=== PATIENT | male | born 1965 | race Caucasian/White ===

== ENCOUNTER → 2019-10-31 07:21 | Outpatient (CLI) | payer MEDICAID | END | disposition home or self-care (01) | LOC: D.OPS 07:21 | PROVIDERS: ATTEND Surgery | DX: K21.9 Gastro-esophageal reflux disease without esophagitis (principal) ==

== ENCOUNTER 2019-12-09 08:00 | Inpatient (IN) | payer MEDICAID ==
[2019-12-06 13:53] LABS: BASOPHILS 0.2 % (0-2); EOSINOPHILS 2.9 % (0-7); HEMATOCRIT 40.3 % (42.0-54.0); HEMOGLOBIN 13.6 g/dL (13.5-17.5); IMMATURE GRANULOCYTES 0.4 % (0-5); LYMPHOCYTES 31.7 % (15-50); MCH 31.5 pg (26.0-34.0); MCHC 33.7 g/dL (31.0-37.0); MCV 93.3 fL (80.0-100.0); MEAN PLATELET VOLUME 9.1 fL (7.4-10.4); MONOCYTES 7.6 % (2-11); NEUTROPHILS 57.2 % (40-80); PLATELET COUNT 364 10x3/uL (130-400); RBC 4.32 10x6/uL (4.20-6.10); RDW 14.9 % (11.5-14.5); WBC 9.9 10x3/uL (4.8-10.8)
[2019-12-06 14:02] LABS: ANION GAP 12.3 mmol/L (8-16); CALCIUM 9.1 mg/dL (8.5-10.1); CARBON DIOXIDE 27.1 mmol/L (21.0-32.0); CREATININE - SERUM 1.4 mg/dL (0.6-1.3); POTASSIUM - SERUM 4.4 mmol/L (3.5-5.1)
[2019-12-09] VITALS (10 sets, daily range): BP systolic 106–134; BP diastolic 46–81; Ht 162.6 cm; Wt 76.8 kg
[~2019-12-09] VITALS: Ht 162.6 cm; Wt 76.8 kg
[~2019-12-09 08:00] MED LIST: BENTYL10 MG PO; CHOLESTYRAM; LISINOPRIL5 MG PO; NORVASC10 MG PO; PEPCID40 MG PO; PROTONIX40 MG PO
--- NOTE | 2019-12-09 12:00 | NUR ---
TO ROOM 2220 FROM PACU VIA BED. PATIENT IS WITHOUT DISTRESS.LAP SITES X4 TO ABD WITH MINIMAL REDNESS AND DRAINAGE.PATIENT AWAKENS INT. ORIENTATION TO ROOM. MONITOR FOR NEEDS.CALL LIGHT IN REACH.IS TO BEDSIDE WITH INSTRUCTIONS. SCD'S ON PATIENT,WAITING ON MACHINE.DOOR OPEN TO MONITOR. 02 SATS 92-93 ON 4 LITERS PER NASAL CANULA.
--- NOTE | 2019-12-09 15:34 | NUR ---
OFF 02 NOW,SATS 94% ON ROOM AIR. TOLERATING CLEAR LIQUID DIET. PAIN 4/10 SCALE TO ABDOMEN,BUT PATIENT DECLINES CURTAIN STRETCHER USE AT THIS TIME. IS INSTRUCTED AGAIN.MONITOR FOR NEEDS
[2019-12-10] VITALS: BP 111/60
--- NOTE | 2019-12-10 02:31 | NUR ---
I have reviewed this patient and I concur with the Shift Assessment completed by the Licensed Practical Nurse today this shift.
[2019-12-10 04:00] VITALS: BP 129/71
[2019-12-10 07:19] LABS: BASOPHILS 0 % (0-2); EOSINOPHILS 0.1 % (0-7); HEMATOCRIT 36.1 % (42.0-54.0); HEMOGLOBIN 12.1 g/dL (13.5-17.5); IMMATURE GRANULOCYTES 0.3 % (0-5); LYMPHOCYTES 18.6 % (15-50); MCH 30.9 pg (26.0-34.0); MCHC 33.5 g/dL (31.0-37.0); MCV 92.3 fL (80.0-100.0); MEAN PLATELET VOLUME 9.5 fL (7.4-10.4); MONOCYTES 7.6 % (2-11); NEUTROPHILS 73.4 % (40-80); PLATELET COUNT 378 10x3/uL (130-400); RBC 3.91 10x6/uL (4.20-6.10); WBC 15.4 10x3/uL (4.8-10.8)
[2019-12-10 07:23] LABS: ALBUMIN 3.3 g/dL (3.4-5.0); ANION GAP 12.1 mmol/L (8-16); BILIRUBIN - TOTAL 0.4 mg/dL (0.2-1.3); CALCIUM 8.7 mg/dL (8.5-10.1); CARBON DIOXIDE 25.3 mmol/L (21.0-32.0); CREATININE - SERUM 1.6 mg/dL (0.6-1.3); POTASSIUM - SERUM 4.4 mmol/L (3.5-5.1)
--- NOTE | 2019-12-10 08:00 | NUR ---
ASSESSMENT PER FLOW SHEET. PT IS WITHOUT DISTRESS.MONITOR FOR NEEDS
[2019-12-10] MEDS ORDERED: HYDROCODON-ACE1 EAC7 PO (08:22)
[2019-12-10] MEDS ORDERED: ZOFRAN4 MG PO (08:22)
[2019-12-10 09:11] VITALS: BP 116/61
--- NOTE | 2019-12-10 09:52 | NUR ---
DISCHARGE INSTRUCTIONS,STATES UNDERSTANDING. IV DCD WITH CATH TIP INTACT. WAITING ON RIDE FOR TRANSPORT HOME
--- NOTE | 2019-12-10 10:22 | NUR ---
LEFT UNIT VIA WHEELCHAIR FOR TRANSPORT HOME
== END 2019-12-10 10:22 | disposition home or self-care (01) | DRG 328 ==
LOC: D.MS 08:00 → D.OPS 08:00 → D.PAN 08:00 → D.OPS 08:15 → D.MS 11:08 → D.OPS 11:08 → D.MS 12-10 10:22
PROVIDERS: Anesthesiology; ADMIT Surgery; ATTEND Surgery
PROC: 0DV44ZZ Restriction of Esophagogastric Junction, Percutaneous Endoscopic Approach (ICD-10-PCS; principal; 2019-12-09 09:00)
PROC: 0BQT4ZZ Repair Diaphragm, Percutaneous Endoscopic Approach (ICD-10-PCS; 2019-12-09 09:00)
DX: K21.9 Gastro-esophageal reflux disease without esophagitis (principal); K44.9 Diaphragmatic hernia without obstruction or gangrene; F17.200 Nicotine dependence, unspecified, uncomplicated; I10 Essential (primary) hypertension

== ENCOUNTER 2019-12-27 13:17 | Emergency (ER) | payer MEDICAID ==
[~2019-12-27] VITALS: Ht 162.6 cm; Wt 71.8 kg
[~2019-12-27 13:17] MED LIST changes: +HYDROCODON-ACE1 EAC7 PO; +ZOFRAN4 MG PO
[2019-12-27 13:27] VITALS: Ht 162.6 cm; Wt 71.8 kg
[2019-12-27 15:42] VITALS: BP 124/81
== END 2019-12-27 15:43 | disposition home or self-care (01) ==
LOC: D.ER 13:17
DX: Z87.19 Personal history of other diseases of the digestive system (principal); Z98.890 Other specified postprocedural states; I10 Essential (primary) hypertension; K21.9 Gastro-esophageal reflux disease without esophagitis

== ENCOUNTER → 2020-02-04 10:46 | Outpatient (CLI) | payer MEDICAID ==
[2019-12-27 13:27] VITALS: BMI 27.1
--- NOTE | 2020-02-06 14:09 | ST ---
PATIENT:JENNIFER LIND MEDICAL RECORD: [id number] SEX: M LOCATION:[facility] ORDER #: ADMISSION DATE: 02/04/20 AGE OF PATIENT: 54 REFERRING PHYSICIAN: INTERPRETING PHYSICIAN: FLOWER SCRUGGS MD DATE OF SERVICE: 02/04/2020 PROCEDURE: Treadmill stress test. Baseline ECG is normal. Exercised for 3 minutes of Napoleon protocol, maximum heart rate 129 beats per minute. Test terminated due to dyspnea and fatigue. No ECG changes, marked dyspnea. IMPRESSION: Indeterminate treadmill due to poor exercise tolerance . Consider further workup as clinically indicated. TRANSINT:[id number] Voice Confirmation ID: [id number] DOCUMENT ID: [id number] FLOWER SCRUGGS MD at 1409 CC: [id number] DICTATION DATE: 02/05/20911 LOST CHARGE CARD CLERK: 02/06/20 0518 DEP CLI 02/04/20 [id number] [place] [address]
== END | disposition home or self-care (01) ==
LOC: D.HCCARDIO 10:46
PROVIDERS: ATTEND Internal Medicine Interventional Cardiology
DX: I20.9 Angina pectoris, unspecified (principal)

== ENCOUNTER 2020-02-12 06:00 | Day surgery (SDC) | payer MEDICAID ==
[~2020-02-12] VITALS: Ht 162.6 cm; Wt 68.6 kg
[2020-02-12 06:29] LABS: HEMATOCRIT 41.6 % (42.0-54.0); HEMOGLOBIN 13.3 g/dL (13.5-17.5); MCH 30.2 pg (26.0-34.0); MCV 94.3 fL (80.0-100.0); MEAN PLATELET VOLUME 9.3 fL (7.4-10.4); RBC 4.41 10x6/uL (4.20-6.10); RDW 14.4 % (11.5-14.5)
[2020-02-12 07:34] VITALS: BP 114/77; Ht 162.6 cm; Wt 68.6 kg
--- NOTE | 2020-02-12 09:45 | NUR ---
0915 IV DC'D. CATHETER TIP INTACT. NO BLEEDING AT SITE. BANDAID APPLIED. 0918 PT GIVEN DISCHARGE INSTRUCTIONS AND VOICES UNDERSTANDING OF INSTRUCTIONS.
== END 2020-02-12 09:34 | disposition home or self-care (01) ==
LOC: D.OPS 06:00
PROVIDERS: Anesthesiology; ATTEND Surgery
DX: R13.10 Dysphagia, unspecified (principal); I10 Essential (primary) hypertension; F17.200 Nicotine dependence, unspecified, uncomplicated; K21.9 Gastro-esophageal reflux disease without esophagitis

== ENCOUNTER 2020-03-09 07:00 | Outpatient (CLI) | payer MEDICAID ==
[~2020-03-09] VITALS: Ht 167.6 cm; Wt 64.5 kg
--- NOTE | ~2020-03-09 | HEMODYNAMI ---
PATIENT:JENNIFER LIND MEDICAL RECORD: [id number] : 65 LOCATION:[facility] ADMISSION DATE: 03/09/20 Generatedon:03/09/202010:01 Patient name: JENNIFER LIND Patient #: [id number] SSN: D OB: 1965 Date of study: 03/09/2020 Page: Of Hemodynamic Procedure Report Patient Data Patient Demographics Procedure consent was obtained First Name: JENNIFER Gender: Male Last Name: DIOGO : 1965 Middle Initial: KERWIN Age: 54 year(s) Patient #: [id number] Race: Unknown Additional ID: [id number] Contact details [address]: [address] [place] [address] State: [place] City: [place] Zip code: [address] Past Medical History Allergies: No known allergies Admission Admission Data Admission Date: 03/09/2020 Admission Time: 7:00 Lab Results Lab Result Date: 03/09/2020 Lab Result Time: 0:00 Biochemistry Name Units Result Min Max BUN mg/dl 18 --(---*)-- 7 18 Creatinine mg/dl 1.5 --(----)-* 0.6 1.3 eGFR ml/min 52 *-(----)-- 90 120 NONAFRICAN CBC Name Units Result Min Max Hematocrit % 41.6 -*(----)-- 42 54 Hemoglobin g/dl 13.5 --(*---)-- 13.5 17.5 Procedure Procedure Types Cath Procedure Diagnostic Procedure LHC LH w/Coronaries Sedation Charges Moderate Sedation up to 15 minutes PCI Procedure Coronary Stent Coronary Stent Initial Hemochron ACT Test Procedure Description Procedure Date Procedure Date: 03/09/2020 Procedure Start Time: 9:38 Procedure End Time: 9:57 Procedure Staff Name Function Chaitanya Johnston MD Performing Physician Soledad Camargo RT Monitor Amy Jimenes RT Scrub Jasmin Chung RN Nurse Procedure Data Cath Procedure Fluoroscopy Diagnostic fluoroscopy Total fluoroscopy Time: 2.3 time: 2.3 min min Diagnostic fluoroscopy Total fluoroscopy dose: 303 dose: 303 mGy mGy Contrast Material Contrast Material Type Amount (ml) Isovue 300 86 Entry Location Entry Primary Successful Side Size Upsize Upsize Entry Closure Succes sful Closure Location (Fr) 1 (Fr) 2 (Fr) Remarks Device Remarks Femoral Right 5 Fr 6 Fr Exoseal artery Short Estimated blood loss: 10 ml Diagnostic catheters Device Type Used For End Catheter Placement MULTIPACK JL 4.0 5Fr Procedure catheter MULTIPACK 3DRC 5Fr Procedure catheter MULTIPACK Pigtail 5 Fr Procedure catheter Procedure Complications No complications Procedure Medications Medication Administration Route Dosage 0.9% NaCl I.V. 100 ml/hr Oxygen etCO2 Nasal cannula 2 l/min Lidocaine 2% added to field 20 Heparin Flush Bag added to field 2 bags (1000units/500ml NS) Versed I.V. 2 mg Fentanyl I.V. 50 mcg Heparin Bolus I.V. 5000 units Integrilin (Bolus I.V. 5.6 ml 2mg/ml) Integrilin (Bolus wasted 4.4 ml 2mg/ml) Plavix P.O. 600 mg Fentanyl I.V. 50 mcg Hemodynamics Rest Heart Rate: 82 (bpm) Pressure Samples Time Site Value (mmHg) Purpose Heart Use Rate(bpm) 9:44 LV 102/4,8 Snapshot 82 Gradients Valve Time Site Site Mean SEP/DFP Peak To Heart Use 1 2 (mmHg) (sec/min) Peak Rate (mmHg) (bpm) Aortic 9:45 LV AO 64 Snapshots Pre Cath Intra NCS Post Cath Vital Signs Time Heart Resp SPO2 etCO2 NIBP Rhythm Pain Sedation Rate (ipm) (%) (mmHg) (mmHg) Status Level (bpm) 9:30:36 76 16 99 35.4 116/72(94) NSR 0 (11) 10(A) , No pain 9:34:50 76 15 97 32.4 113/66(87) NSR 0 (11) 10(A) , No pain 9:39:00 77 17 97 27.1 110/68(84) NSR 0 (11) 10(A) , No pain 9:43:10 75 15 96 33.9 113/68(84) NSR 0 (11) 10(A) , No pain 9:47:22 81 12 98 33.9 110/64(91) NSR 0 (11) 9(A) , No pain 9:51:31 82 12 98 31.7 107/65(87) NSR 0 (11) 9(A) , No pain 9:55:39 73 17 97 29.4 111/71(91) NSR 0 (11) 10(A) , No pain Medications Time Medication Route Dose Verified Delivered Reason Notes Effectiveness by by 9:28:02 0.9% NaCl I.V. 100 Chaitanya Jasmin used for ml/hr [facility] procedure MD BRANDON 9:28:10 Oxygen etCO2 2 Chaitanya Mariea used for Nasal l/min [facility] procedure cannula MD BRANDON 9:28:15 Lidocaine 2% added 20ml Chaitanya Tavares for local to vial [facility] anesthetic field MD HARRISON 9:28:20 Heparin Flush added 2 Chaitanya Chaitanya used for Bag to bags [facility] procedure (1000units/500ml field MD HARRISON NS) 9:37:18 Versed I.V. 2 mg Chaitanya Jasmin for sedation Fully awake @ [facility] 9:55:35 MD BRANDON 9:37:32 Fentanyl I.V. 50 Chaitanya Jasmin for sedation Fully awake @ mcg [facility] 9:55:36 MD BRANDON 9:43:56 Fentanyl I.V. 50 Chaitanya Jasmin for sedation Mostly mcg [facility] sleeping @ MD BRANDON 9:55:26 9:47:58 Heparin Bolus I.V. 5000 Chaitanya Jasmin for verifi ed units [facility] anticoagulation with Dr. MD BRANDON [place] 9:48:13 Integrilin I.V. 5.6 Chaitanya Mariea for (Bolus 2mg/ml) ml [facility] antiplatelet RN therapy 9:48:26 Integrilin wasted 4.4 Chaitanya Jasmin for (Bolus 2mg/ml) ml [facility] antiplatelet MD BRANDON therapy 9:48:37 Plavix P.O. 600 Chaitanya Mariea for mg [facility] antiplatelet RN therapy Procedure Log Time Note 9:15:48 Informed consent obtained and on chart 9:16:24 Procedure Status Elective Heart Cath (OP). 9:16:28 Jasmin Chung RN sent for patient. Start room use. 9:16:29 Time tracking: Regular hours (M-F 7:00 - 5:00) 9:16:32 Plan of Care:Hemodynamics will remain stable., Cardiac rhythm will remain stable., Comfort level will be maintained., Respiratory function will remain adequate., Patient/ family verbilizes understanding of procedure., Procedure tolerated without complication., Recovers from procedure without complications.. 9:20:17 H&P Date Dictated: 02/20/2020 Within 30 days and on chart., H&P Addendum completed by physician on day of procedure. (MUST COMPLETE FOR ALL OUTPATIENTS). 9:20:21 Patient allergic to No known allergies 9:25:15 Patient received from Pre/Post Procedure Room to CCL 1 Alert and oriented. Tansferred to table in Supine position. 9:25:16 Warm blankets applied, and prema hugger turned on for patient comfort. 9:25:17 Correct patient and procedure confirmed by team. 9:25:17 ECG and BP/O2 sat monitors applied to patient. 9:25:19 Vital chart was started 9:25:23 Rhythm: sinus rhythm 9:25:24 Full Disclosure recording started 9:25:25 Pre-procedure instructions explained to patient. 9:25:25 Pre-op teaching completed and patient verbalized understanding. 9:25:27 Family in patients room. 9:25:28 Patient NPO since Midnight. 9:25:32 Is the patient allergic to Iodine/contrast media? No. 9:25:33 Is patient on blood thinner?No 9:25:34 Patient diabetic? No. 9:25:37 Previous problem with sedation/anesthesia? No ? 9:25:39 Snore? Yes 9:25:40 Sleep apnea? No 9:25:41 Deviated septum? No 9:25:42 Opens mouth fully? Yes 9:25:42 Sticks out tongue? Yes 9:25:44 Airway obstruction? No ? 9:25:46 Dentures? No ? 9:25:49 Pre procedure: right dorsailis pedis pulse 1+ Palpable, but thready & weak; easily obliterated 9:26:41 DID NOT GO RADIAL DUE TO PREVIOUS HAND SURGERY IN PAST. WRIST IS REALLY SWOLLEN. 9:26:43 Patient pain scale 0/10 ?. 9:26:46 IV patent on arrival in left hand with 0.9% NaCl at [facility]. 9:28:02 0.9% NaCl 100 ml/hr I.V. was administered by Jasmin Chung RN; used for procedure; Verbal order read back and verified. 9:28:10 Oxygen 2 l/min etCO2 Nasal cannula was administered by Jasmin Chung RN; used for procedure; Verbal order read back and verified. 9:28:15 Lidocaine 2% 20ml vial added to field was administered by Chaitanya Johnston MD; for local anesthetic; Verbal order read back and verified. 9:28:20 Heparin Flush Bag (1000units/500ml NS) 2 bags added to field was administered by Chaitanya Johnston MD; used for procedure; Verbal order read back and verified. :: Lab Result : Creatinine 1.5 mg/dl : Lab Result : BUN 18 mg/dl : Lab Result : eGFR NONAFRICAN 52 ml/min :: Lab Result : Hemoglobin 13.5 g/dl :: Lab Result : Hematocrit 41.6 % 9::32 Lab results completed and on chart. 9:31:36 Right groin area was prepped with chlora-prep and draped in sterile fashion 9:31:36 Alarms reviewed by R. N. 9:31:37 Sharps counted by scrub and verified by R.N. 9:33:20 Stress Test: yes; abnormal TREADMILL- UNABLE TO COMPLETE 9:33:25 Use device set Femoral Dx 9:33:26 ACIST Syringe (15778) opened to sterile field. 9:33:26 Bag Decanter () opened to sterile field. 9:33:27 ACIST Hand Control (77468) opened to sterile field. 9:33:28 ACIST Manifold (23405) opened to sterile field. 9:33:28 Tegaderm 4 x 4 (1626W) opened to sterile field. 9:33:30 Medline Cath Pack ([id number]) opened to sterile field. 9:33:31 DIAGNOSTIC Multipack 5Fr catheter set ([id number]) opened to sterile field. 9:33:32 SHEATH 5FR Ripon (HNO584) opened to sterile field. 9:33:32 EMERALD Guide Wire (528-972) opened to sterile field. 9:36:14 --------ALL STOP TIME OUT------ 9:36:15 Final Timeout: patient, procedure, and site verified with staff and physician. All members of the team are in agreement. 9:36:16 Right groin site verified by team. 9:36:19 Fire Safety Assessment: A--An alcohol-based skin anteseptic being used preoperatively., C--Open oxygen or nitrous oxide is being used., D--An ESU, laser, or fiber-optic light is being used. 9:36:23 Physical assessment completed. ASA score P 2 - A patient with mild systemic disease as per Chaitanya Johnston MD. 9:36:26 3a) 45-59 Moderately reduced kidney function. 9:36:30 Maximum allowable contrast dose (3.7 X eGFR X 0.75)144 ml. 9:36:34 Sedation plan: IV Moderate Sedation Medication:Versed, Fentanyl 9:37:18 Versed 2 mg I.V. was administered by Jasmin Chung RN; for sedation; Verbal order read back and verified. 9:37:32 Fentanyl 50 mcg I.V. was administered by Jasmin Chung RN; for sedation; Verbal order read back and verified. 9:38:06 Procedure started. 9:38:25 Local anesthetic to right femoral artery with Lidocaine 2% by Chaitanya Johnston MD.INITIAL ACCESS ONLY 9:39:01 Zero performed for pressure channel P1 9:39:19 A 5 Fr sheath was inserted into the Right Femoral artery 9:40:10 A MULTIPACK JL 4.0 5Fr catheter was advanced over the wire and used for Procedure. 9:42:14 LCA angiography performed. 9:42:16 Catheter removed. 9:42:40 A MULTIPACK 3DRC 5Fr catheter was advanced over the wire and used for Procedure. 9:43:29 RCA angiography performed. 9:43:31 Catheter removed. 9:43:33 ACCDominant side:Left 9:43:38 A MULTIPACK Pigtail 5 Fr catheter was advanced over the wire and used for Procedure. 9:43:41 Zero performed for pressure channel P1 9:43:56 Fentanyl 50 mcg I.V. was administered by Jasmin Chung RN; for sedation; Verbal order read back and verified. 9:44:11 LV gram done using LAGUNAS 9:44:14 Injector settings: Ml/sec: 10, Volume: 20, 9:45:06 LV hemodynamics recorded. 9:45:18 EF : 55 % 9:45:20 Proceeding to intervention. 9:45:30 SHEATH 6FR [place]on (MTP300) opened to sterile field. 9:45:39 GUIDE 6FR JR 4.0 catheter ([id number]) opened to sterile field. 9:45:51 INFLATOR Merit BasixCompak (LI5384) opened to sterile field. 9:45:51 WHISPER 300cm guide wire ([id number]) opened to sterile field. 9:46:30 Sheath upsized to a 6 Fr Short. 9:46:40 Pre PCI Site: [place] RCA has 80% stenosis. 9:46:47 6 Fr JR 4 guide catheter was inserted over the wire 9:47:58 Heparin Bolus 5000 units I.V. was administered by Jasmin Chung RN; for anticoagulation; verified with Dr. Martínez Verbal order read back and verified. 9:48:13 Integrilin (Bolus 2mg/ml) 5.6 ml I.V. was administered by Jasmin Chung RN; for antiplatelet therapy; Verbal order read back and verified. 9:48:26 Integrilin (Bolus 2mg/ml) 4.4 ml wasted was administered by Jasmin Chung RN; for antiplatelet therapy; Verbal order read back and verified. 9:48:28 WHISPER 300 wire advanced. 9:48:37 Plavix 600 mg P.O. was administered by Jasmin Chung RN; for antiplatelet therapy; Verbal order read back and verified. 9:49:34 Wire advanced across lesion. 9:51:36 Place stent Inflation Number: 1 A INTEGRITY RX 3.5 x 15 stent ([id number]) was prepped and advanced across the Mid RCA . The stent was deployed at 14 VU for 0:00 (min:sec) . 9:52:07 Stent catheter was removed intact over wire. 9:52:08 Wire removed. 9:52:09 Guide catheter removed. 9:52:16 EXOSEAL 6Fr (EX600) opened to sterile field. 9:53:18 Sheath removed intact; hemostasis achieved with Exoseal to the Right Femoral artery. 9:53:20 Procedure ended.(Physican Out) 9:53:35 Fluoroscopy time 02.30 minutes. 9:53:39 Fluoroscopy dose: 303 mGy 9:53:39 Flurop Dose total: 303 9:53:44 Dose Area Product 13906 mGy/cm. 9:53:50 Contrast amount:Isovue 300 86ml. 9:54:06 Maximum allowable dose exceeded? No. 9:54:07 Sharps counted by scrub and verified by R.N. 9:54:10 Post-op/insertion site Right Femoral artery dressed using a 4 x 4 and Tegaderm. 9:54:12 Post-procedure physical assessment completed. ASA score P 2 - A patient with mild systemic disease as per Chaitanya Johnston MD. 9:54:17 Post procedure rhythm: sinus rhythm 9:54:19 Estimated blood loss: 10 ml 9:54:21 Post procedure instruction explained to patient.Patient verbalizes understanding. 9:54:22 Patient needs reinforcement of post procedure teaching. 9:54:56 Procedure type changed to Cath procedure, Diagnostic procedure, LHC, [facility] w/Coronaries, Sedation Charges, Moderate Sedation up to 15 minutes, PCI procedure, Coronary Stent, Coronary Stent Initial, Hemochron ACT Test 9:54:57 Procedure and supply charges have been captured, reviewed, submitted and are correct. 9:55:24 Procedure Complication : No complications 9:55:26 Effectiveness of Fentanyl delivered @ 9:43:56 is: Mostly sleeping 9:55:26 Vital chart was stopped 9:55:28 [facility] Findings: MVD- PCI performed (see procedure note) 9:55:34 Operative report dictated upon procedure completion. 9:55:34 See physician's report for complete and final results. 9:55:35 Effectiveness of Versed delivered @ 9:37:18 is: Fully awake 9:55:36 Effectiveness of Fentanyl delivered @ 9:37:32 is: Fully awake 9:56:03 Report given to Med II. 9:56:06 Patient transfered to Med II with Bed. 9:56:11 ACC-PCI Only Patient was given prescriptions, or instructed by Chaitanya Johnston MD to start/continue the following medications upon discharge: Plavix 9:57:14 ACT drawn and resulted at 258 seconds. (normal therapeutic range 180-240 seconds). 9:57:48 Procedure ended. 9:57:48 Full Disclosure recording stopped 9:57:53 End room use (Document Last) Intervention Summary Intervention Notes Time ActionType Lesion and Equipment Action# Pressure Duration Attributes Used 9:51:36 Place stent Mid RCA INTEGRITY RX 1 14 00:00 3.5 x 15 stent ([id number]) Device Usage Item Name Manufacture Quantity Catalog Hospital Part Current Minimal Lot# / Number Charge Number Stock Stock Serial# Code ACIST Acist 1 16174 356191 149571 065530 20 Syringe Medical (98462) Systems Inc Bag Decanter Microtek 1 2001S 660994 10415 552671 5 (2001S) Medical Inc. ACIST Hand Acist 1 93672 445410 936210 187817 5 Control Medical (90984) Systems Inc ACIST Acist 1 10423 196152 810083 998985 5 Manifold Medical (67829) Systems Inc Tegaderm 4 x 3M 1 1626W 812584 312136 901714 5 4 (1626W) Medline Cath Medline 1 [id number] 789497 71263 184834 5 Pack ([id number]) DIAGNOSTIC Cardinal 1 KA2189 751997 60142 889248 30 Multipack Health 5Fr catheter set (OC9768) SHEATH 5FR Terumo 1 PLS741 760985 798083 641155 5 Ripon (KLV650) EMERALD Cardinal 1 502-455 109271 682103 504727 5 Guide Wire Health (502-455) MULTIPACK JL Cardinal 1 706041 5 4.0 5Fr Health catheter MULTIPACK Cardinal 1 029109 5 3DRC 5Fr Health catheter MULTIPACK Cardinal 1 721254 5 Pigtail 5 Fr Health catheter SHEATH 6FR Terumo 1 TOB845 005234 163838 918450 40 Ripon (NWK668) GUIDE 6FR JR Medtronic 1 [id number] 570842 87749 008259 1 4.0 catheter (MY3UH16) INFLATOR Merit 1 BA8688 859151 142059 594485 15 [employer] Medical BasixCompak (VI4594) WHISPER Tarango 1 [id number] 625700 521522 632332 5 300cm guide Vascular wire ([id number]) INTEGRITY RX Medtronic 1 [id number] 179338 582878 920310 5 [id number] 3.5 x 15 stent ([id number]) EXOSEAL 6Fr Cardinal 1 EX600 314066 726517 428547 10 (EX600) Health Signature Audit [place] Stage Time Signature Unsigned Intra-Procedure 03/09/2020 Soledad Camargo 9:59:20 AM RT(R) Intra-Procedure 03/09/2020 Jasmin Chung 9:59:42 AM RN Intra-Procedure 03/09/2020 Soledad Camargo 10:01:15 AM RT(R) [facility] [address] [id number]
[2020-03-09 07:37] VITALS: BP 112/73; Ht 167.6 cm; Wt 64.5 kg
[2020-03-09 07:54] LABS: BASOPHILS 0.1 % (0-2); EOSINOPHILS 3.1 % (0-7); HEMATOCRIT 41.6 % (42.0-54.0); HEMOGLOBIN 13.5 g/dL (13.5-17.5); IMMATURE GRANULOCYTES 0.4 % (0-5); LYMPHOCYTES 34.5 % (15-50); MCH 30.8 pg (26.0-34.0); MCHC 32.5 g/dL (31.0-37.0); MCV 94.8 fL (80.0-100.0); MEAN PLATELET VOLUME 9.4 fL (7.4-10.4); MONOCYTES 6.3 % (2-11); NEUTROPHILS 55.6 % (40-80); PLATELET COUNT 385 10x3/uL (130-400); RBC 4.39 10x6/uL (4.20-6.10); RDW 14.9 % (11.5-14.5); WBC 11.1 10x3/uL (4.8-10.8)
[2020-03-09 08:06] LABS: ANION GAP 12.5 mmol/L (8-16); CALCIUM 9.2 mg/dL (8.5-10.1); CARBON DIOXIDE 26.7 mmol/L (21.0-32.0); CHOL - HDL RATIO 5.8 ratio (2.3-4.9); CREATININE - SERUM 1.5 mg/dL (0.6-1.3); LDL-HDL RATIO 3.8 ratio (1.5-3.5); POTASSIUM - SERUM 4.2 mmol/L (3.5-5.1)
--- NOTE | 2020-03-09 10:17 | NUR ---
PATIENT ARRIVED TO ROOM 5, PLACED ON CM AND 2L NC. VSS. SPOUSE PRESENT AT BEDSIDE, PHYSICIAN ARRIVED TO UPDATE PATIENT AND SPOUSE. NO C/O PAIN, NUMBNESS, OR TINGLING. NO N/V. PATIENT GIVEN WARM BLANKETS PER REQUEST.2+ PEDAL PULSES.
[2020-03-09] MEDS ORDERED: PLAVIX75 MG PO (10:22)
[2020-03-09] MEDS ORDERED: LIPITOR10 MG PO (10:22)
[2020-03-09] MEDS ORDERED: ASPIRIN81 MG PO (10:22)
--- NOTE | 2020-03-09 10:25 | NUR ---
PATIENT INTERMITTENTLY RESTING, VSS ON 2L NC. RIGHT GROIN DRESSING IS CDI, NO S/S OF BLEEDING OR HEMATOMA NOTED. PATIENT TOLERATING PO ORANGE JUICE PER REQUEST. NO N/V. 2+ PEDAL PULSES. SPOUSE PRESENT AT BEDSIDE. NO C/O PAIN, NUMBNESS, OR TINGLING.
--- NOTE | 2020-03-09 10:55 | NUR ---
PATIENT RESTING. VSS ON 1L NC. RIGHT GROIN DRESSING IS CDI, NO S/S OF BLEEDING OR HEMATOMA. NO C/O PAIN, NUMBNESS, OR TINGLING. NO N/V.
--- NOTE | 2020-03-09 11:25 | NUR ---
PATIENT RESTING, VSS ON 1L NC. RIGHT GROIN DRESSING IS CDI, NO S/S OF BLEEDING OR HEMATOMA. PATIENT VOIDED 200CC OF YELLOW URINE WITHOUT DIFFICULTY. NO C/O PAIN, NUMBNESS, OR TINGLING.TOLERATING PO FLUIDS, NO N/V.
--- NOTE | 2020-03-09 11:55 | NUR ---
PATIENT RESTING, VSS ON ROOM AIR. RIGHT GROIN DRESSING IS CDI, NO S/S OF BLEEDING OR HEMATOMA. NO C/O PAIN, NUMBNESS, OR TINGLING. NO N/V.
--- NOTE | 2020-03-09 12:25 | NUR ---
PATIENT RESTING, VSS ON ROOM AIR. RIGHT GROIN DRESSING IS CDI, NO S/S OF BLEEDING OR HEMATOMA. NO C/O PAIN, NUMBNESS, OR TINGLING. PATIENT VOIDED 200CC YELLOW URINE WITHOUT DIFFICULTY.
--- NOTE | 2020-03-09 12:55 | NUR ---
PATIENT AWAKE, VSS ON ROOM AIR. RIGHT GROIN DRESSING IS CDI, NO S/S OF BLEEDING OR HEMATOMA. NO C/O PAIN, NUMBNESS, OR TINGLING. SPOUSE PRESENT AT BEDSIDE. NO N/V. PATIENT GIVEN SANDWICH PER REQUEST, NO N/V.
--- NOTE | 2020-03-09 13:00 | NUR ---
HEAD OF BED ELEVATED TO 60 DEGREES. RIGHT GROIN DRESSING IS CDI, NO S/S OF BLEEDING OR HEMATOMA.
--- NOTE | 2020-03-09 13:25 | NUR ---
PATIENT AWAKE, SITTING UP IN BED. VSS ON ROOM AIR. RIGHT GROIN DRESSING IS CDI, NO S/S OF BLEEDING OR HEMATOMA. NO C/O PAIN, NUMBNESS, OR TINGLING. WRITTEN AND VERBAL DISCHARGE INSTRUCTIONS AND MEDICATION EDUCATION GIVEN TO PATIENT AND SPOUSE, BOTH VERBALIZE UNDERSTANDING.
--- NOTE | 2020-03-09 13:35 | NUR ---
SMALL AMOUNT OF BLEEDING NOTED AT RIGHT GROIN SITE, PRESSURE APPLIED FOR FIVE MINUTES WITH NO FURTHER S/S OF BLEEDING OR HEMATOMA. NEW DRESSING APPLIED.
--- NOTE | 2020-03-09 13:55 | NUR ---
RIGHT GROIN SITE DRESSING IS CDI, NO S/S OF BLEEDING OR HEMATOMA. NO C/O PAIN, NUMBNESS, OR TINGLING. IV REMOVED WITH CATHLON FULLY INTACT. PATIENT DISCONNECTED FROM MONITORS TO GET DRESSED, SPOUSE SENT TO GET CAR.
--- NOTE | 2020-03-09 14:05 | NUR ---
PATIENT TRANSPORTED VIA WHEELCHAIR TO CAR WITH SPOUSE DRIVING, ALL BELONGINGS WITH PATIENT.
--- NOTE | 2020-03-10 13:08 | OP ---
PATIENT NAME: JENNIFER LIND MEDICAL RECORD: [id number] :65 LOCATION:D.CAT ADMISSION DATE: SURGEON: FLOWER SCRUGGS MD DATE OF OPERATION: 03/09/2020 PROCEDURE: Left heart catheterization, selective coronary angiography, right femoral artery approach. CATHETERS: A 5-Azerbaijani sheath, 5/4 left and right Eliazar, 5/4 pig. The procedure was well tolerated. The patient returned to the mariee. Sheath removed. ExoSeal device placed. FINDINGS: Left ventriculography in 30-degree LAGUNAS view: Normal wall motion and normal systolic function. CORONARY ANATOMY: LEFT MAIN: Left main is free of disease. LAD: Free of disease in the diagonal system. CIRCUMFLEX: Free of disease in the marginal system. RIGHT CORONARY ARTERY: Shows a mid portion stenosis about 80% with some post-stenotic dilatation. This is a right dominant system. PLAN: Intervention momentarily. DESCRIPTION OF PROCEDURE: A 5-Azerbaijani sheath was exchanged for a 6-Azerbaijani sheath. A JR guiding catheter provided excellent guide catheter support followed by a 300 cm Whisper wire was placed across the 80% stenosis right coronary down this portion of vessel. Stent deployed was 3.5 x 15 integrity up to 14 atmospheres for 45 seconds. Final angiography shows excellent resolution of an 80% stenosis, right with no significant residual. Nice step up proximally and step down distally. Sheath closed with ExoSeal device. Plavix was loaded in the lab. TRANSINT:[id number] Voice Confirmation ID: [id number] DOCUMENT ID: [id number] FLOWER SCRUGGS MD at 1308 CC: [id number] DICTATION DATE: 03/09/20 1001 PULLER THROUGH: 03/09/20 1933 DEP CLI 03/09/20 [facility] [address] [id number]
== END 2020-03-09 14:05 ==
LOC: D.CATH 07:00
PROVIDERS: ATTEND Internal Medicine Interventional Cardiology
DX: I25.119 Atherosclerotic heart disease of native coronary artery with unspecified angina pectoris (principal); R06.00 Dyspnea, unspecified; E78.5 Hyperlipidemia, unspecified; I10 Essential (primary) hypertension; Z72.0 Tobacco use; K21.9 Gastro-esophageal reflux disease without esophagitis

== ENCOUNTER 2020-04-08 05:23 | Inpatient (IN) | payer BC ==
[~2020-04-08] VITALS: Ht 162.6 cm; Wt 64.5 kg
[2020-04-08] VITALS (12 sets, daily range): BP systolic 92–126; BP diastolic 51–67; Ht 162.6 cm; Wt 64.5 kg
[~2020-04-08 05:23] MED LIST changes: +ASPIRIN81 MG PO; +LIPITOR10 MG PO; +PLAVIX75 MG PO
[2020-04-08 05:39] LABS: HEMATOCRIT 37.2 % (42.0-54.0); HEMOGLOBIN 12.2 g/dL (13.5-17.5); MCH 30.8 pg (26.0-34.0); MCHC 32.8 g/dL (31.0-37.0); MCV 93.9 fL (80.0-100.0); MEAN PLATELET VOLUME 9.4 fL (7.4-10.4); RBC 3.96 10x6/uL (4.20-6.10); RDW 14.8 % (11.5-14.5); WBC 9.1 10x3/uL (4.8-10.8)
--- NOTE | 2020-04-08 07:11 | NUR ---
NOTIFIED ALEKSANDR CARTER IN SURGERY OF PTS LAST DOSE OF PLAVIX 75MG AND ASA 81MG ON 04/07/2020.
--- NOTE | 2020-04-08 07:12 | NUR ---
PAGED DR. MARIN REGARDING LAST DOSE OF PLAVIX AND ASA. DR. MEANS WITH ANESTHESIA IS AWARE.
--- NOTE | 2020-04-08 07:18 | NUR ---
DR. MARIN RETURNED PAGE. NO NEW ORDERS. CONTINUE WITH SURGERY PLANNED.
--- NOTE | 2020-04-08 13:37 | OP ---
PATIENT NAME: JENNIFER LIND MEDICAL RECORD: [id number] :65 LOCATION:D.MS [id number] ADMISSION DATE: SURGEON: LUIS MARIN MD DATE OF OPERATION: 04/08/2020 SURGEON: Luis Marin MD PREOPERATIVE DIAGNOSES: Dysphagia, history of laparoscopic Jennifer fundoplication. POSTOPERATIVE DIAGNOSES: Dysphagia, history of laparoscopic Jennifer fundoplication. PROCEDURE PERFORMED: 1. Laparoscopic revision of Jennifer. 2. EGD by Dr. Jacques. ANESTHESIA: General. COMPLICATIONS: None. SPECIMENS: None. Case was clean. ESTIMATED BLOOD LOSS: 60 cc. OPERATIVE COURSE: After consent was obtained, the patient was taken to the operating room and placed in the supine position on the operating table. Next, general anesthesia was given via endotracheal intubation after a timeout was performed to confirm the correct patient and procedure. Abdomen was prepped and draped in typical sterile fashion. Local anesthetic was injected just above the umbilicus. A stab incision was made with 11-blade scalpel. Using an 11-mm bladeless optical trocar, the abdomen was entered under direct laparoscopic vision. Adequate pneumoperitoneum was achieved. The abdomen cavity was inspected. No evidence of bowel injury. No evidence of bleeding. At this time, all remaining trocars were placed, two 5-mm trocars in the right lateral quadrant, 5-mm trocar in the left lateral quadrants, Brandan retractor in the subxiphoid position. The left lobe of liver was then elevated to expose the GE junction. At this time, meticulous dissection was performed to identify the prior Jennifer fundoplication. The suture line was encountered. The suture line and scar tissue were taken with the Harmonic scalpel. The wrap was then gently dissected using a combination of blunt dissection in combination with Harmonic scalpel dissection until this was continued from the anterior midline towards the right to dissect the cardia. This dissection continued posteriorly allowing for the wrap to be completely passed posteriorly. The hiatus was inspected. There was no evidence of hiatal hernia recurrence. There was 3-4 cm of intra-abdominal esophagus. At this time, Dr. Jacques performed an EGD to evaluate for the integrity of the GE junction as well as to test for any evidence of injury to the stomach or esophagus. The scope was easily traversed across the GE junction. There was no anatomical obstruction. The stomach was markedly inflated. The stomach was filled with irrigation. There was no evidence of leak. There were no bubbles noted within the intra-abdominal cavity. The stomach was markedly distended and taut. The scope was retroflexed, again no abnormalities noted within the stomach, GE junction or OPERATIVE REPORT [id number] JENNIEFR LIND esophagus. No blood or any evidence of injury. The stomach was desufflated. At this time, a 180-degree wrap was performed. The stomach was redressed and passed posterior. It was secured along the lateral edge of the esophagus at the GE junction with 3-0 Stratafix suture. The stomach was still scarred and intact along the left lateral edge of the GE junction from the prior wrap, this was left intact for a full 180 degree posterior fundoplication. At this time, Barb powder was applied to the operative field. The abdomen was copiously irrigated and suctioned. No evidence of bleeding. The Brandan retractor was removed. The 11-mm trocar site was then closed with 0 Vicryl suture and a Nestor-Tania suture passer under direct laparoscopic vision. At this time, all remaining instruments removed. The abdomen was desufflated. Trocars removed. Skin was closed with 4-0 Monocryl, Mastisol and Steri-Strips. At the end of the case, all needle and instrument counts were correct. No complications occurred. The patient was extubated and transferred to PACU in stable condition. TRANSINT:[id number] Voice Confirmation ID: [id number] DOCUMENT ID: [id number] LUIS MARIN MD at 1337 CC: [id number] DICTATION DATE: 04/08/20 0933 SALES PROJECT ADMINISTRATOR: 04/08/20 1330 REG [facility] [address] [place] [address]
--- NOTE | 2020-04-08 20:00 | NUR ---
PT SITTING UP IN BED WITHOUT DISTRESS, AOX4. LAP SITES X5 TO ABD, SLIGHTLY BLOODY, NO ACTIVE BLEEDING. ABD DISTENDED. IV LEFT FA INFUSING LR @ 100 WITH MORPHINE DUMPCART DRIVER FOR PAIN. SCDS ON. NURSES AID ASSISTED PT IN WALKING AROUND NURSES STATION X2 LAPS. PROVIDED ICE WATER. DENIES OTHER NEEDS. CL IN REACH, WILL CTM
[2020-04-09] VITALS: BP 97/49
[2020-04-09 04:00] VITALS: BP 97/48
[2020-04-09 07:02] LABS: BASOPHILS 0.1 % (0-2); EOSINOPHILS 0.6 % (0-7); HEMATOCRIT 32.1 % (42.0-54.0); IMMATURE GRANULOCYTES 0.3 % (0-5); LYMPHOCYTES 19.4 % (15-50); MCH 29.8 pg (26.0-34.0); MCHC 31.2 g/dL (31.0-37.0); MCV 95.5 fL (80.0-100.0); MEAN PLATELET VOLUME 9.6 fL (7.4-10.4); MONOCYTES 6.8 % (2-11); NEUTROPHILS 72.8 % (40-80); PLATELET COUNT 319 10x3/uL (130-400); RBC 3.36 10x6/uL (4.20-6.10); RDW 15.1 % (11.5-14.5); WBC 13.4 10x3/uL (4.8-10.8)
[2020-04-09 07:25] LABS: ALBUMIN 3.2 g/dL (3.4-5.0); ANION GAP 11.4 mmol/L (8-16); BILIRUBIN - TOTAL 0.3 mg/dL (0.2-1.3); CALCIUM 8.9 mg/dL (8.5-10.1); CARBON DIOXIDE 27.3 mmol/L (21.0-32.0); CREATININE - SERUM 1.4 mg/dL (0.6-1.3); POTASSIUM - SERUM 4.7 mmol/L (3.5-5.1); PROTEIN - SERUM 5.8 g/dL (6.4-8.2)
--- NOTE | 2020-04-09 07:30 | NUR ---
REC'D IN BED AWAKE AND ALERT. RESP EVEN AND UNALBORED. NO DISTRESS NOTED. ASSESSMENT CDMPLETED. C/L IN REACH A BEDSIDE.
[2020-04-09] MEDS ORDERED: HYDROCODON-ACE1 EAC7 PO (08:21)
[2020-04-09 09:00] VITALS: BP 104/55
--- NOTE | 2020-04-09 10:26 | NUR ---
DC HOME AT THIS TIME VOICE UNDERSTANDING OF DC ORDERS. INV DC. STABLE CONDITION UPON DC.
== END 2020-04-09 10:44 | disposition home or self-care (01) | DRG 328 ==
LOC: D.OPS 05:23 → D.MS 05:24 → D.OPS 07:30 → D.PAN 07:30 → D.OPS 08:00 → D.MS 10:13 → D.OPS 10:13 → D.MS 04-09 10:44
PROVIDERS: Anesthesiology; ADMIT Surgery; ATTEND Surgery
PROC: 0DQ44ZZ Repair Esophagogastric Junction, Percutaneous Endoscopic Approach (ICD-10-PCS; principal; 2020-04-08 07:30)
PROC: 0DJ08ZZ Inspection of Upper Intestinal Tract, Via Natural or Artificial Opening Endoscopic (ICD-10-PCS; 2020-04-08 07:30)
DX: R13.10 Dysphagia, unspecified (principal); F17.200 Nicotine dependence, unspecified, uncomplicated; K21.9 Gastro-esophageal reflux disease without esophagitis; K44.9 Diaphragmatic hernia without obstruction or gangrene

== ENCOUNTER 2020-04-09 16:58 | Emergency (ER) | payer BC ==
[~2020-04-09] VITALS: Ht 165.1 cm; Wt 63.6 kg
[2020-04-09 17:20] VITALS: BP 111/65; Ht 165.1 cm; Wt 63.6 kg
== END 2020-04-09 18:20 | disposition home or self-care (01) ==
LOC: D.ER 16:58
DX: Z48.00 Encounter for change or removal of nonsurgical wound dressing (principal); I10 Essential (primary) hypertension; Z72.0 Tobacco use; K21.9 Gastro-esophageal reflux disease without esophagitis

== ENCOUNTER 2020-04-10 06:58 | Emergency (ER) | payer MEDICAID ==
[~2020-04-10] VITALS: Ht 165.1 cm; Wt 63.6 kg
[2020-04-10 07:01] VITALS: Ht 165.1 cm; Wt 63.6 kg
[2020-04-10 08:16] LABS: BASOPHILS 0.2 % (0-2); EOSINOPHILS 4.4 % (0-7); HEMATOCRIT 30.5 % (42.0-54.0); HEMOGLOBIN 9.5 g/dL (13.5-17.5); IMMATURE GRANULOCYTES 0.2 % (0-5); LYMPHOCYTES 15.7 % (15-50); MCH 30.2 pg (26.0-34.0); MCHC 31.1 g/dL (31.0-37.0); MCV 96.8 fL (80.0-100.0); MEAN PLATELET VOLUME 9.7 fL (7.4-10.4); MONOCYTES 7.2 % (2-11); NEUTROPHILS 72.3 % (40-80); PLATELET COUNT 300 10x3/uL (130-400); RBC 3.15 10x6/uL (4.20-6.10); RDW 15.5 % (11.5-14.5)
[2020-04-10 08:19] LABS: APTT 33.1 SECONDS (22.8-39.4); INR 1.07 (0.85-1.17); PROTIME 13.9 SECONDS (11.6-15.0)
[2020-04-10 08:32] LABS: CALC OSMOLALITY 283 mosm/kg (275-300); CALCIUM 8.3 mg/dL (8.5-10.1); CARBON DIOXIDE 26.6 mmol/L (21.0-32.0); CHLORIDE - SERUM 109 mmol/L (98-107); CREATININE - SERUM 1.4 mg/dL (0.6-1.3); GLUCOSE 105 mg/dL (74-106); POTASSIUM - SERUM 4.1 mmol/L (3.5-5.1); SODIUM 143 mmol/L (136-145); UREA NITROGEN 10 mg/dL (7-18); eGFR NON AFRICAN AMERICAN 56 mL/min (90-120)
[2020-04-10 08:49] LABS: ALBUMIN 3.2 g/dL (3.4-5.0); ALKALINE PHOSPHATASE 99 U/L (30-120); ALT (SGPT) 47 U/L (10-68); BILIRUBIN - TOTAL 0.33 mg/dL (0.2-1.3); CKMB 0.7 U/L (0.0-3.6); CREATINE KINASE 89 UL (21-232); PROTEIN - SERUM 5.4 g/dL (6.4-8.2); TROPONIN-I < 0.017 ng/mL (0.000-0.060)
[2020-04-10 09:16] LABS: BILIRUBIN NEGATIVE (NEGATIVE); GLUCOSE NEGATIVE (NEGATIVE); KETONE NEGATIVE (NEGATIVE); NITRITE NEGATIVE (NEGATIVE); UROBILINOGEN NORMAL (NORMAL)
[2020-04-10 10:00] VITALS: BP 116/61
== END 2020-04-10 10:22 | disposition other institution (70) ==
LOC: D.ER 06:58
PROVIDERS: Family Medicine
DX: R55 Syncope and collapse (principal); S01.81XA Laceration without foreign body of other part of head, initial encounter; I60.9 Nontraumatic subarachnoid hemorrhage, unspecified; W19.XXXA Unspecified fall, initial encounter; Y93.9 Activity, unspecified; Y92.9 Unspecified place or not applicable; M54.2 Cervicalgia; Z72.0 Tobacco use; R51 Headache

== ENCOUNTER → 2020-06-24 08:20 | Outpatient (CLI) | payer MEDICAID ==
[2020-04-10 07:01] VITALS: BMI 23.3
== END | disposition home or self-care (01) ==
LOC: D.HCCARDIO 08:20
PROVIDERS: ATTEND Internal Medicine Cardiovascular Disease
DX: I25.10 Atherosclerotic heart disease of native coronary artery without angina pectoris (principal)

== ENCOUNTER 2020-07-07 07:26 | Day surgery (SDC) | payer MEDICAID ==
[~2020-07-07] VITALS: Ht 165.1 cm; Wt 63.9 kg
--- NOTE | ~2020-07-07 | HEMODYNAMI ---
PATIENT:JENNIFER LIND MEDICAL RECORD: [id number] : 65 LOCATION:DED ADMISSION DATE: 07/07/20 Generatedon:07/07/20209:56 Patient name: JENNIFER LIND Patient #: [id number] SSN: [id number] : 1965 Date of study: 07/07/2020 Page: Of Hemodynamic Procedure Report Patient Data Patient Demographics Procedure consent was obtained First Name: JENNIFER Gender: Male Last Name: DIOGO : 1965 Middle Initial: KERWIN Age: 54 year(s) Patient #: [id number] Race: Unknown SSN: [id number] Additional ID: [id number] Contact details [address]: [address] [place] [address] State: [place] City: [place] Zip code: [address] Past Medical History History of disease Date Diagnosis Comments CAD Allergies: No known allergies Admission Admission Data Admission Date: 07/07/2020 Admission Time: 7:26 Arrival Date: 07/07/2020 Arrival Time: 0:00 Height (in.): 65 BSA: 1.71 (m2) Height (cm.): 165.1 BMI: 23.48 (kg/m2) Weight (lbs.): 141.1 Weight (kg.): 64 Lab Results Lab Result Date: 07/07/2020 Lab Result Time: 0:00 Biochemistry Name Units Result Min Max BUN mg/dl 22 --(----)-* 7 18 Creatinine mg/dl 1.4 --(----)*- 0.6 1.3 eGFR ml/min 56 *-(----)-- 90 120 NONAFRICAN CBC Name Units Result Min Max Hematocrit % 42.6 --(*---)-- 42 54 Hemoglobin g/dl 13.8 --(*---)-- 13.5 17.5 Procedure Procedure Types Cath Procedure Diagnostic Procedure LHC [facility] w/Coronaries FFR/IVUS FFR Initial Sedation Charges Moderate Sedation up to 15 minutes PCI Procedure Hemochron ACT Test Procedure Description Procedure Date Procedure Date: 07/07/2020 Procedure Start Time: 9:35 Procedure End Time: 9:54 Procedure Staff Name Function Chaitanya Johnston MD Performing Physician Marco A Ames RN Nurse Vanessa Nobles RT Scrub Soledad Camargo RT Monitor Indication Dyspnea Procedure Data Cath Procedure Fluoroscopy Diagnostic fluoroscopy Total fluoroscopy Time: 2.1 time: 2.1 min min Diagnostic fluoroscopy Total fluoroscopy dose: 441 dose: 441 mGy mGy Contrast Material Contrast Material Type Amount (ml) Isovue 300 51 Entry Location Entry Primary Successful Side Size Upsize Upsize Entry Closure Miller ccessful Closure Location (Fr) 1 (Fr) 2 (Fr) Remarks Device Remarks Radial Right 6 Fr Mechanical artery Short Compression Estimated blood loss: 5 ml Diagnostic catheters Device Type Used For End Catheter Placement DIAGNOSTIC Dixon 110cm 5 Procedure Fr catheter ([id number]) Procedure Complications No complications Procedure Medications Medication Administration Route Dosage 0.9% NaCl I.V. 100 ml/hr Oxygen etCO2 Nasal cannula 2 l/min Heparin Flush Bag added to field 2 bags (1000units/500ml NS) Lidocaine 2% added to field 20 Radial Cocktail added to field 1 syringe (Verapamil 2mg/Nitro 400mcg/Heparin 1500units) Versed I.V. 2 mg Fentanyl I.V. 100 mcg Radial Cocktail I.A. 1 syringe (Verapamil 2mg/Nitro 400mcg/Heparin 1500units) Heparin Bolus I.V. 2000 units Hemodynamics Rest BSA: 1.71 (m2) O2 Consumption: Estimated: 195.64 (ml/min) O2 Consumption indexed : Estimated:114.41 (ml/min/m) Heart Rate: 59 (bpm) Pressure Samples Time Site Value (mmHg) Purpose Heart Use Rate(bpm) 9:38 LV 111/12,8 Snapshot 94 9:39 AO 107/82(95) Pullback 74 Gradients Valve Time Site Site 2 Mean SEP/DFP Peak To Heart Use 1 (mmHg) (sec/min) Peak Rate (mmHg) (bpm) Aortic 9:39 LV AO 74 107/82(95) Snapshots Pre Cath Intra NCS Post Cath Vital Signs Time Heart Resp SPO2 etCO2 NIBP (mmHg) Rhythm Pain Sedation Rate (ipm) (%) (mmHg) Status Level (bpm) 9:17:55 58 18 100 31.6 149/93(115) NSR 0 (11) 10(A) , No pain 9:22:09 65 14 100 29.3 142/88(120) NSR 0 (11) 10(A) , No pain 9:26:19 67 13 100 32.4 132/88(103) NSR 0 (11) 10(A) , No pain 9:30:27 71 12 99 9.7 131/86(100) NSR 0 (11) 10(A) , No pain 9:34:35 71 19 98 9 127/83(103) NSR 0 (11) 10(A) , No pain 9:38:45 51 12 98 29.3 106/65(76) NSR 0 (11) 9(A) , No pain 9:42:44 85 12 96 18 126/78(93) NSR 0 (11) 9(A) , No pain 9:46:50 80 12 97 22.6 121/79(101) NSR 0 (11) 10(A) , No pain 9:50:54 80 14 98 35.4 128/80(100) NSR 0 (11) 10(A) , No pain Medications Time Medication Route Dose Verified Delivered Reason Note s Effectiveness by by 9:17:00 0.9% NaCl I.V. 100 Marco A Marco A Per physician ml/hr Hui Ames RN RN 9:17:09 Oxygen etCO2 2 l/min Marco A Marco A for low 02 sats Nasal Lorigan Hui cannula RN RN 9:17:21 Heparin Flush added 2 bags Marco A Marco A used for Bag to Lorigan Lorigan procedure (1000units/500ml RN RN NS) 9:17:32 Lidocaine 2% added 20ml Marco A Marco A for local to vial Lorigan Lorigan anesthetic RN RN 9:17:43 Radial Cocktail added 1 Marco A Marco A used for (Verapamil to syringe Lorigan Lorigan procedure 2mg/Nitro RN RN 400mcg/Heparin 1500units) 9:35:33 Versed I.V. 2 mg Marco A Marco A for sedation Hui Ames RN RN 9:35:41 Fentanyl I.V. 100 mcg Marco A Marco A for sedation Hui Ames RN RN 9:38:07 Radial Cocktail I.A. 1 Marco A Chaitanya for (Verapamil syringe Lorigan Preston vasodilation 2mg/Nitro RN 400mcg/Heparin 1500units) 9:44:50 Heparin Bolus I.V. 2,000 Marco A Strickland for units Hui Ames anticoagulation RN flame burner Log Time Note 8:30:32 Informed consent obtained and on chart 8:32:43 Procedure Status Elective Heart Cath (OP). 8:32:44 Time tracking: Regular hours (M-F 7:00 - 5:00) 8:32:48 Plan of Care:Hemodynamics will remain stable., Cardiac rhythm will remain stable., Comfort level will be maintained., Respiratory function will remain adequate., Patient/ family verbilizes understanding of procedure., Procedure tolerated without complication., Recovers from procedure without complications.. 8:33:33 H&P Date Dictated: 06/18/2020 Within 30 days and on chart., H&P Addendum completed by physician on day of procedure. (MUST COMPLETE FOR ALL OUTPATIENTS). 8:33:41 Patient allergic to No known allergies 8:48:30 Lab Result : BUN 22 mg/dl 8:48:30 Lab Result : Creatinine 1.4 mg/dl 8:48:30 Lab Result : eGFR NONAFRICAN 56 ml/min 8:48:30 Lab Result : Hemoglobin 13.8 g/dl 8:48:30 Lab Result : Hematocrit 42.6 % 8:49:18 Patient Weight : 141.1 lbs 8:49:23 Patient Height : 65 inches 8:49:30 Arrival Date: 07/07/2020 12:00:00 AM 8:52:43 Indication : Dyspnea 8:52:48 Diagnostic Cath Status : Elective 9:04:09 Marco A mAes RN sent for patient. Start room use. 9:09:05 Patient received from Pre/Post Procedure Room to CCL 2 Alert and oriented. Tansferred to table in Supine position. 9:09:06 Warm blankets applied, and prema hugger turned on for patient comfort. 9:09:07 Correct patient and procedure confirmed by team. 9:16:45 Vital chart was started 9:17:00 0.9% NaCl 100 ml/hr I.V. was administered by aMrco A Ames RN; Per physician; Verbal order read back and verified. 9:17:09 Oxygen 2 l/min etCO2 Nasal cannula was administered by Marco A Lorigan RN; for low 02 sats; Verbal order read back and verified. 9:17:21 Heparin Flush Bag (1000units/500ml NS) 2 bags added to field was administered by Marco A Ames RN; used for procedure; Verbal order read back and verified. 9:17:25 ECG and BP/O2 sat monitors applied to patient. 9:17:26 Baseline sample Acquired. 9:17:30 Rhythm: sinus bradycardia 9:17:32 Lidocaine 2% 20ml vial added to field was administered by Marco A Ames RN; for local anesthetic; Verbal order read back and verified. 9:17:32 Full Disclosure recording started 9:17:33 Pre-procedure instructions explained to patient. 9:17:33 Pre-op teaching completed and patient verbalized understanding. 9:17:36 Patient NPO since Midnight. 9:17:38 Is the patient allergic to Iodine/contrast media? No. 9:17:39 Is patient on blood thinner?No 9:17:41 Patient diabetic? No. 9:17:43 Radial Cocktail (Verapamil 2mg/Nitro 400mcg/Heparin 1500units) 1 syringe added to field was administered by Marco A Ames RN; used for procedure; Verbal order read back and verified. 9:17:43 Previous problem with sedation/anesthesia? No ? 9:17:44 Snore? Yes 9:17:45 Sleep apnea? No 9:17:46 Deviated septum? No 9:17:47 Opens mouth fully? Yes 9:17:48 Sticks out tongue? Yes 9:17:50 Airway obstruction? No ? 9:17:54 Dentures? No ? 9:17:57 Pre procedure: right dorsailis pedis pulse 1+ Palpable, but thready & weak; easily obliterated 9:17:59 Modified Dalton's test Ulnar < 7 seconds 9:18:01 Patient pain scale 0/10 ?. 9:18:08 IV patent on arrival in left hand with 0.9% NaCl at [facility]. 9:18:09 Lab results completed and on chart. 9:18:13 Right Radial & Right Groin area was prepped with chlora-prep and draped in sterile fashion 9:18:14 Alarms reviewed by R. N. 9:18:14 Sharps counted by scrub and verified by R.N. 9:20:14 Use device set Radial Dx or PCI 9:20:18 ACIST Syringe (93387) opened to sterile field. 9:20:20 Bag Decanter (2001S) opened to sterile field. 9:20:20 ACIST Hand Control (72635) opened to sterile field. 9:20:21 ACIST Manifold (60437) opened to sterile field. 9:20:21 Tegaderm 4 x 4 (1626W) opened to sterile field. 9:20:24 Medline Cath Pack ([id number]) opened to sterile field. 9:20:25 MBrace Wrist Support ([id number]) opened to sterile field. 9:20:26 EMERALD Guide Wire (030-442) opened to sterile field. 9:20:27 SHEATH 6FR RAIN (2790265) opened to sterile field. 9:27:12 Zero performed for pressure channel P1 9:34:47 --------ALL STOP TIME OUT------ 9:34:47 Final Timeout: patient, procedure, and site verified with staff and physician. All members of the team are in agreement. 9:34:49 Right Radial & Right Groin site verified by team. 9:34:52 Fire Safety Assessment: A--An alcohol-based skin anteseptic being used preoperatively., C--Open oxygen or nitrous oxide is being used., D--An ESU, laser, or fiber-optic light is being used. 9:34:55 Physical assessment completed. ASA score P 2 - A patient with mild systemic disease as per Chaitanya Johnston MD. 9:34:59 3a) 45-59 Moderately reduced kidney function. 9:35:02 Maximum allowable contrast dose (3.7 X eGFR X 0.75)155 ml. 9:35:05 Sedation plan: IV Moderate Sedation Medication:Versed, Fentanyl 9:35:33 Versed 2 mg I.V. was administered by Marco A Ames RN; for sedation; Verbal order read back and verified. 9:35:40 Procedure started. 9:35:41 Fentanyl 100 mcg I.V. was administered by Marco A Ames RN; for sedation; Verbal order read back and verified. 9:35:59 Local anesthetic to right radial artery with Lidocaine 2% by Chaitanya Johnston MD.INITIAL ACCESS ONLY 9:36:42 A 6 Fr Short sheath was inserted into the Right Radial artery 9:37:04 A DIAGNOSTIC Dixon 110cm 5 Fr catheter ([id number]) was advanced over the wire and used for Procedure. 9:38:07 Radial Cocktail (Verapamil 2mg/Nitro 400mcg/Heparin 1500units) 1 syringe I.A. was administered by Chaitanya Johnston MD; for vasodilation; Verbal order read back and verified. 9:38:13 LV gram done using LAGUNAS 9:38:17 Injector settings: Ml/sec: 5, Volume: 15, 9:38:35 LV hemodynamics recorded. 9:39:05 EF : 50 % 9:40:22 LCA angiography performed. 9:41:25 RCA angiography performed. 9:41:30 Catheter exchanged over wire. 9:42:47 INFLATOR Merit BasixCompak (BV0144) opened to sterile field. 9:42:52 Overbrook Verrata Plus pressure wire (72118H) opened to sterile field. 9:42:55 GUIDE 6FR HS I catheter (LA6HSI) opened to sterile field. 9:42:58 Proceeding to intervention. 9:44:41 6 Fr HS 1 guide catheter was inserted over the wire 9:44:50 Heparin Bolus 2,000 units I.V. was administered by Marco A Ames RN; for anticoagulation; Verbal order read back and verified. 9:45:57 FFR/IFR wire advanced. 9:48:21 Wire advanced across lesion. 9:48:28 RCA lesion measured at .92 with IFR 9:48:50 Wire removed. 9:48:51 Guide catheter removed. 9:49:09 ZEPHYR REGULAR TR BAND (262355) opened to sterile field. 9:49:19 Procedure ended.(Physican Out) 9:49:35 Sheath removed intact; hemostasis achieved with Mechanical Compression to the Right Radial artery. 9:49:40 Fluoroscopy time 02.10 minutes. 9:49:43 Flurop Dose total: 441 9:49:43 Fluoroscopy dose: 441 mGy 9:49:49 Dose Area Product 98620 mGy/cm. 9:49:52 Contrast amount:Isovue 300 51ml. 9:49:59 Maximum allowable dose exceeded? No. 9:50:01 Sharps counted by scrub and verified by R.N. 9:50:20 Flint band inflated with 10cc of air. 9:50:21 Insertion/operative site no bleeding no hematoma. 9:50:24 Post-procedure physical assessment completed. ASA score P 2 - A patient with mild systemic disease as per Chaitanya Johnston MD. 9:50:27 Post procedure rhythm: sinus rhythm 9:50:31 Estimated blood loss: 5 ml 9:50:33 Post procedure instruction explained to patient.Patient verbalizes understanding. 9:50:33 Patient needs reinforcement of post procedure teaching. 9:51:07 Procedure type changed to Cath procedure, Diagnostic procedure, LHC, LHC w/Coronaries, FFR/IVUS, FFR Initial, Sedation Charges, Moderate Sedation up to 15 minutes, PCI procedure, Hemochron ACT Test 9:51:54 Procedure and supply charges have been captured, reviewed, submitted and are correct. 9:51:56 Procedure Complication : No complications 9:52:00 [facility] Findings: mild to moderate CAD (<70%) 9:52:01 Operative report dictated upon procedure completion. 9:52:02 See physician's report for complete and final results. 9:53:58 Vital chart was stopped 9:54:00 Report given to Pre/Post Procedure Room. 9:54:02 Patient transfered to Pre/Post Procedure Room with Bed. 9:54:04 Procedure ended. 9:54:04 Full Disclosure recording stopped 9:54:48 ACT drawn and resulted at 313 seconds. (normal therapeutic range 180-240 seconds). 9:55:12 End room use (Document Last) Device Usage Item Name Manufacture Quantity Catalog Hospital Part Current Mini mal Lot# / Number Charge Number Stock Stock Serial# Code ACIST Acist 1 76042 [id number] 409393 [id number] 20 Syringe Medical (07293) Systems Inc Bag Microtek 1 905086 83314 865261 5 Decanter Medical Inc. () ACIST Hand Acist 1 98230 423853 865978 813695 5 Control Medical (10054) Systems Inc ACIST Acist 1 55595 208422 475613 368390 5 Manifold Medical (35354) Systems Inc Tegaderm 4 3M 1 1626W 708513 754325 242030 5 x 4 (1626W) Medline Medline 1 [id number] 647741 45861 413423 5 Cath Pack ([id number]) MBrace Advanced 1 140-8062-00 449225 49176 919984 5 Wrist Vascular Support Dynamics ([id number]) EMERALD Cardinal 1 502-455 598407 369938 321192 5 Guide Wire Health (502455) SHEATH 6FR Cardinal 1 [id number] 824801 8184904 813355 5 [facility] Health (4426150) DIAGNOSTIC Terumo 1 40-5013 374990 992980 922229 5 Dixon 110cm 5 Fr catheter (740088) INFLATOR Merit 1 MX6501 067222 863493 301065 15 [facility] Medical BasixCompak (DC5675) Overbrook Overbrook 1 50655R 839628 [id number] 054720 5 Verrata Plus pressure wire (36836V) GUIDE 6FR Medtronic 1 LA6HSI 372660 99282 153332 1 HS I catheter (LA6HSI) ZEPHYR Cardinal 1 564103 120702 2704756 932350 5 REGULAR TR Health BAND (557071) Signature Audit [place] Stage Time Signature Unsigned Intra-Procedure 07/07/2020 Soledad Camargo 9:55:43 AM RT(R) Intra-Procedure 07/07/2020 Marco A 9:56:03 AM Hui BRANDON Intra-Procedure 07/07/2020 Chaitanya Pires 9:56:28 AM Juan José HARRISON Signatures Performing Physician : Signature : Chaitanya Johnston MD Date : Time : Nurse : Marco A Ames Signature : RN Date : Time : Monitor : Soledad Camargo Signature : RT Date : Time : [facility] [address] [place] [address]
[2020-07-07] MEDS ORDERED: FERROUS SULFAT325 MG PO (07:46)
[2020-07-07] MEDS ORDERED: NITROQUICK0.4 MG SL (07:47)
[2020-07-07 08:09] VITALS: BP 140/88; Ht 165.1 cm; Wt 63.9 kg
[2020-07-07 08:20] LABS: BASOPHILS 0.2 % (0-2); HEMATOCRIT 42.6 % (42.0-54.0); HEMOGLOBIN 13.8 g/dL (13.5-17.5); IMMATURE GRANULOCYTES 0.2 % (0-5); LYMPHOCYTES 25.7 % (15-50); MCH 30.6 pg (26.0-34.0); MCHC 32.4 g/dL (31.0-37.0); MCV 94.5 fL (80.0-100.0); MEAN PLATELET VOLUME 9.9 fL (7.4-10.4); MONOCYTES 6.9 % (2-11); PLATELET COUNT 290 10x3/uL (130-400); RBC 4.51 10x6/uL (4.20-6.10); RDW 14.8 % (11.5-14.5)
[2020-07-07 08:22] LABS: ANION GAP 8.9 mmol/L (8-16); CALCIUM 9.3 mg/dL (8.5-10.1); CARBON DIOXIDE 28.1 mmol/L (21.0-32.0); CREATININE - SERUM 1.4 mg/dL (0.6-1.3); LDL-HDL RATIO 1.6 ratio (1.5-3.5)
--- NOTE | 2020-07-07 10:05 | NUR ---
PT RECEIVED VIA STRETCHER FROM CLOSING SPECIALIST FOR RECOVERY. PT AWAKE BUT DROWSY, DENIES PAIN OR DISCOMFORT. IV PATENT INFUSING VIA ORDERS TO L ARM. ZYPHER BAND AND IMMOBILIZER TO R WRIST/ARM, NO S/S HEMATOMA OR BLEEDING. ARM PINK AND WARM, CAP REFILL BRISK. PT INSTRUCTED NOT TO USE ARM, HE VERBALIZED UNDERSTANDING. PT PLACED ON CARDIAC MONITORS, HR 60, BP 120/74, RR 13, SAT 96 ON ROOM AIR. CALL LIGHT IN REACH. 1000 DR SCRUGGS WAS IN ROOM PRIOR TO PT ARRIVAL AND SPOKE WITH REGARDING PROCEDURE RESULTS AND PLAN OF CARE.
--- NOTE | 2020-07-07 10:30 | NUR ---
PT SLEEPING, VSS AT PRESENT. ZBAND AND IMMOBILIZER IN PLACE, NO S/S HEMATOMA OR BLEEDING NOTED. CALL LIGHT IN REACH, AT BS
--- NOTE | 2020-07-07 11:15 | NUR ---
PT TOLERATED LUNCH W/O DIFFICULITY OR NAUSEA. PT DENIES PAIN OR NEEDS AT THIS TIME. VSS. ZBAND AND IMMOBILIZER IN PLACE. NO S/S HEMATOMA OR BLEEDING. CALL LIGHT IN REACH, REMAINS AT BS
--- NOTE | 2020-07-07 11:38 | NUR ---
3CC AIR REMOVED FROM Z BAND, NO BLEEDING NOTED.
--- NOTE | 2020-07-07 12:18 | NUR ---
3 ADD'L CC AIR REMOVED FROM ZBAND, NO BLEEDING NOTED. DISCHARGE INSTRUCTIONS REVIEWED W PT AND , THEY VERBALIZED UNDERSTANDING. IV REMOVED W CATH INTACT, MONITORS REMOVED AND PT UP TO DRESS. ZBAND AND IMMOBILIZER IN PLACE.
--- NOTE | 2020-07-07 12:25 | NUR ---
ZBAND AND REMAINING AIR REMOVED, NO BLEEDING OR S/S HEMATOMA NOTED. 2X2 AND SM TEGADERM DRESSING APPLIED. IMMOBILIZER RE POSITIONED.
--- NOTE | 2020-07-07 12:30 | NUR ---
PT TO BR VIA WC, VOIDING W/O DIFFICULITY. PT THEN DISCHARGED VIA WC TO WAITING IN PRIVATE VEHICLE. PT HAD ALL BELONGINGS AND DISCHARGE FOLDER.
--- NOTE | 2020-07-08 16:55 | OP ---
PATIENT NAME: JENNIFER LIND MEDICAL RECORD: [id number] :65 LOCATION:D.CAT ADMISSION DATE: SURGEON: FLOWER SCRUGGS MD DATE OF OPERATION: 07/07/2020 PROCEDURE: Left heart catheterization, selective coronary angiography, right radial approach, IFR wire to right coronary. FINDINGS: Left ventriculography in 30-degree LAGUNAS view: Normal wall motion, normal systolic function. CORONARY ANATOMY: LEFT MAIN: Left main is free of disease. LAD: Free of disease in the diagonal system. CIRCUMFLEX: Free of disease in the marginal system. RIGHT CORONARY ARTERY: At the end of the stent, questionable area of some restenosis; however, IFR to this area showed a normal at 0.92. IMPRESSION: Left anterior descending and circumflex is normal. Patent stent to the right coronary by both angiography and IFR wire. TRANSINT:[id number] Voice Confirmation ID: [id number] DOCUMENT ID: [id number] FLOWER SCRUGGS MD at 1655 CC: [id number] DICTATION DATE: 07/07/20 0957 CHIP BIN OPERATOR: 07/07/20 1451 [facility] 07/07/20 [facility] [address] [place] [address]
== END 2020-07-07 12:30 | disposition home or self-care (01) ==
LOC: D.CATH 07:26
PROVIDERS: ATTEND Internal Medicine Interventional Cardiology
DX: R06.00 Dyspnea, unspecified (principal); I25.10 Atherosclerotic heart disease of native coronary artery without angina pectoris; E78.5 Hyperlipidemia, unspecified; I10 Essential (primary) hypertension

== ENCOUNTER 2021-02-27 17:14 | Observation (INO) | payer BC ==
[~2021-02-27] VITALS: Ht 165.1 cm; Wt 65.8 kg
[~2021-02-27 17:14] MED LIST changes: +FERROUS SULFAT325 MG PO; +NITROQUICK0.4 MG SL
[2021-02-27 17:38] VITALS: BP 132/78
[2021-02-27 18:48] LABS: BASOPHILS 0.7 % (0-2); EOSINOPHILS 2.3 % (0-7); HEMATOCRIT 39.1 % (42.0-54.0); HEMOGLOBIN 12.8 g/dL (13.5-17.5); MCH 30.2 pg (26.0-34.0); MCHC 32.6 g/dL (31.0-37.0); MCV 92.4 fL (80.0-100.0); MEAN PLATELET VOLUME 7.6 fL (7.4-10.4); MONOCYTES 6.2 % (2-11); NEUTROPHILS 65.8 % (40-80); RBC 4.23 10x6/uL (4.20-6.10); RDW 15.1 % (11.5-14.5); WBC 14.7 10x3/uL (4.8-10.8)
[2021-02-27 18:49] LABS: PLATELET COUNT 388 10x3/uL (130-400)
[2021-02-27 18:56] LABS: APTT 28.1 SECONDS (22.8-39.4); INR 1.06 (0.85-1.17); PROTIME 12.8 SECONDS (11.6-15.0)
[2021-02-27 18:57] LABS: D-DIMER-QUANTITATIVE < 0.27 ug/mLFEU (0.20-0.54)
[2021-02-27 18:59] LABS: CALC OSMOLALITY 284 mosm/kg (275-300); CALCIUM 9.1 mg/dL (8.5-10.1); CHLORIDE - SERUM 107 mmol/L (98-107); CREATININE - SERUM 1.4 mg/dL (0.6-1.3); GLUCOSE 88 mg/dL (74-106); POTASSIUM - SERUM 4.6 mmol/L (3.5-5.1); SODIUM 142 mmol/L (136-145); UREA NITROGEN 22 mg/dL (7-18); eGFR NON AFRICAN AMERICAN 56 mL/min (90-120)
[2021-02-27 19:11] LABS: ALBUMIN 3.8 g/dL (3.4-5.0); ALKALINE PHOSPHATASE 93 U/L (30-120); ALT (SGPT) 22 U/L (10-68); BILIRUBIN - TOTAL 0.56 mg/dL (0.2-1.3); CKMB 0.9 U/L (0.0-3.6); CREATINE KINASE 49 UL (21-232); PRO BNP 36 pg/mL (0-125); PROTEIN - SERUM 6.7 g/dL (6.4-8.2)
[2021-02-27 19:12] LABS: TROPONIN-I < 0.017 ng/mL (0.000-0.060)
[2021-02-27] MEDS ORDERED: LISINOPRIL10 MG PO (19:35)
[2021-02-27] MEDS ORDERED: ANORO ELLIPTA1 EACH INH (19:36)
[2021-02-27] MEDS ORDERED: PEPCID40 MG PO (19:36)
[2021-02-27 20:00] VITALS: BP 134/73
--- NOTE | 2021-02-27 20:20 | NUR ---
PT ARRIVED ON UNIT VIA WHEELCHAIR, ESCORTED BY ER STAFF. POSITIONED IN BED FOR COMFORT. ORIENTED TO ROOM AND CALL LIGHT. O2 IN USE VIA NC AT 2L. IV TO RIGHT FA SALINE LOCKED.
--- NOTE | 2021-02-27 20:35 | NUR ---
PROVIDED PT WITH SANDWICH TRAY, PUDDING AND [place] [employer] SODA.
--- NOTE | 2021-02-27 20:47 | NUR ---
GAVE INCENTIVE INSPIROMETER AND INSTRUCTED ON USE.
[2021-02-27 21:11] VITALS: BP 134/73; BMI 24.1
--- NOTE | 2021-02-27 21:35 | NUR ---
APPLIED NICOTINE PATCH TO RIGHT DELTOID AREA. PT EDUCATED ON USE.
[2021-02-28] VITALS: BP 110/67
[2021-02-28 03:00] LABS: CKMB 0.7 U/L (0.0-3.6); CREATINE KINASE 40 UL (21-232)
[2021-02-28 03:01] LABS: TROPONIN-I < 0.017 ng/mL (0.000-0.060)
[2021-02-28 06:23] LABS: BASOPHILS 0.1 % (0-2); EOSINOPHILS 0 % (0-7); HEMATOCRIT 37.4 % (42.0-54.0); HEMOGLOBIN 12.3 g/dL (13.5-17.5); LYMPHOCYTES 16.4 % (15-50); MCH 30.2 pg (26.0-34.0); MCHC 32.9 g/dL (31.0-37.0); MCV 91.8 fL (80.0-100.0); MEAN PLATELET VOLUME 7.8 fL (7.4-10.4); MONOCYTES 0.8 % (2-11); NEUTROPHILS 82.7 % (40-80); PLATELET COUNT 369 10x3/uL (130-400); RBC 4.07 10x6/uL (4.20-6.10)
[2021-02-28 06:44] LABS: WBC 9.1 10x3/uL (4.8-10.8)
[2021-02-28 07:08] LABS: ALBUMIN 3.5 g/dL (3.4-5.0); ALKALINE PHOSPHATASE 89 U/L (30-120); ALT (SGPT) 22 U/L (10-68); BILIRUBIN - TOTAL 0.21 mg/dL (0.2-1.3); CALCIUM 9.2 mg/dL (8.5-10.1); CARBON DIOXIDE 24.5 mmol/L (21.0-32.0); CHLORIDE - SERUM 109 mmol/L (98-107); CKMB 0.7 U/L (0.0-3.6); CREATINE KINASE 40 UL (21-232); CREATININE - SERUM 1.4 mg/dL (0.6-1.3); MAGNESIUM - SERUM 2.2 mg/dL (1.8-2.4); PROTEIN - SERUM 6.2 g/dL (6.4-8.2); SODIUM 143 mmol/L (136-145); UREA NITROGEN 24 mg/dL (7-18); eGFR NON AFRICAN AMERICAN 56 mL/min (90-120)
[2021-02-28 07:09] LABS: CALC OSMOLALITY 293 mosm/kg (275-300); GLUCOSE 184 mg/dL (74-106); TROPONIN-I < 0.017 ng/mL (0.000-0.060)
[2021-02-28 08:50] VITALS: BP 124/71
--- NOTE | 2021-02-28 09:00 | NUR ---
ASSESSMENT PER FLOW SHEET. PATIENT IS WITHOUT DISTRESS. SCD'S ON AND WORKING. CALL LIGHT USE IMSTRUCTED.URINE TO LAB ORDERED.
[2021-02-28 09:44] LABS: BILIRUBIN NEGATIVE (NEGATIVE); KETONE NEGATIVE (NEGATIVE); NITRITE NEGATIVE (NEGATIVE); UROBILINOGEN NORMAL mg/dL (< 2)
[2021-02-28 09:49] LABS: BACTERIA RARE HPF (NONE SEEN); SQUAMOUS EPITHELIAL 0-5 HPF (0-4); WHITE CELLS - URINE 0-5 HPF (0-1)
[2021-02-28 13:31] VITALS: BP 115/62
--- NOTE | 2021-02-28 15:32 | NUR ---
HAS AMBULATED IN HALLS TODAY. HE IS WITHOUT DISTRESS. ECHO HAS BEEN COMPLETED TODAY. MONITOR FFOR NEEDS
[2021-02-28 17:08] VITALS: BP 112/58
[2021-02-28 20:00] VITALS: BP 106/53
[2021-03-01] VITALS: BP 99/51
[2021-03-01 04:00] VITALS: BP 101/55
[2021-03-01 07:07] LABS: BASOPHILS 0.3 % (0-2); EOSINOPHILS 0 % (0-7); HEMATOCRIT 33.3 % (42.0-54.0); HEMOGLOBIN 11.1 g/dL (13.5-17.5); LYMPHOCYTES 6.3 % (15-50); MCH 30.6 pg (26.0-34.0); MCHC 33.3 g/dL (31.0-37.0); MCV 91.9 fL (80.0-100.0); MEAN PLATELET VOLUME 8.2 fL (7.4-10.4); MONOCYTES 3.3 % (2-11); NEUTROPHILS 90.1 % (40-80); PLATELET COUNT 350 10x3/uL (130-400); RBC 3.63 10x6/uL (4.20-6.10); RDW 15.1 % (11.5-14.5); WBC 28.8 10x3/uL (4.8-10.8)
[2021-03-01 07:17] LABS: ALBUMIN 3.3 g/dL (3.4-5.0); ANION GAP 12.1 mmol/L (8-16); BILIRUBIN - TOTAL 0.12 mg/dL (0.2-1.3); CALCIUM 9.1 mg/dL (8.5-10.1); CARBON DIOXIDE 23.8 mmol/L (21.0-32.0); MAGNESIUM - SERUM 2.3 mg/dL (1.8-2.4); POTASSIUM - SERUM 4.9 mmol/L (3.5-5.1); PROTEIN - SERUM 6.2 g/dL (6.4-8.2)
[2021-03-01 07:18] LABS: CREATININE - SERUM 1.8 mg/dL (0.6-1.3)
[2021-03-01 10:49] VITALS: BP 110/52
[2021-03-01 12:28] VITALS: BP 118/41
[2021-03-01 13:13] VITALS: Ht 165.1 cm; Wt 65.8 kg
[2021-03-01 18:16] VITALS: BP 113/56
[2021-03-01 20:00] VITALS: BP 102/50
--- NOTE | 2021-03-01 20:00 | NUR ---
PT SITTING UP IN BED WITHOUT DISTRESS, AOX4. TOOK HS MEDS WITHOUT DIFFICULTY. DENIES OTHER NEEDS AT THIS TIME. CL IN REACH
[2021-03-02] VITALS: BP 96/41
[2021-03-02 04:00] VITALS: BP 120/56
[2021-03-02 06:21] LABS: BASOPHILS 0.2 % (0-2); EOSINOPHILS 0 % (0-7); HEMATOCRIT 32.8 % (42.0-54.0); HEMOGLOBIN 10.9 g/dL (13.5-17.5); LYMPHOCYTES 9.2 % (15-50); MCH 30.5 pg (26.0-34.0); MCHC 33.2 g/dL (31.0-37.0); MCV 92.1 fL (80.0-100.0); MEAN PLATELET VOLUME 8.4 fL (7.4-10.4); MONOCYTES 4.2 % (2-11); NEUTROPHILS 86.4 % (40-80); PLATELET COUNT 347 10x3/uL (130-400); RBC 3.56 10x6/uL (4.20-6.10); RDW 15.3 % (11.5-14.5); WBC 29.2 10x3/uL (4.8-10.8)
[2021-03-02 06:46] LABS: ALBUMIN 3.1 g/dL (3.4-5.0); ANION GAP 13.7 mmol/L (8-16); BILIRUBIN - TOTAL 0.12 mg/dL (0.2-1.3); CALCIUM 8.7 mg/dL (8.5-10.1); CREATININE - SERUM 1.6 mg/dL (0.6-1.3); MAGNESIUM - SERUM 2.1 mg/dL (1.8-2.4); POTASSIUM - SERUM 4.7 mmol/L (3.5-5.1); PROTEIN - SERUM 5.8 g/dL (6.4-8.2)
[2021-03-02 09:12] VITALS: BP 106/65
[2021-03-02 11:52] VITALS: BP 118/58
[2021-03-02 20:00] VITALS: BP 111/53
--- NOTE | 2021-03-02 20:00 | NUR ---
PT SITTING UP IN BED WITHOUT DISTRESS, AOX4. PROVIDED COFFEE UPON REQUEST. DENIES PAIN OR NEEDS AT THIS TIME. CL IN REACH
[2021-03-03 04:00] VITALS: BP 121/67
--- NOTE | 2021-03-03 07:29 | NUR ---
RECIEVED BEDSIDE REPORT. BED LOW POSITION, CALL LIGHT IN REACH. DENIES NEEDS AT THIS TIME. FREE FROM SIGNS OF DISTRESS. WILL CONTINUE TO MONITOR.
[2021-03-03 07:55] LABS: ALBUMIN 3.2 g/dL (3.4-5.0); ANION GAP 14.7 mmol/L (8-16); BILIRUBIN - TOTAL 0.22 mg/dL (0.2-1.3); CALCIUM 8.9 mg/dL (8.5-10.1); CARBON DIOXIDE 24.9 mmol/L (21.0-32.0); CREATININE - SERUM 1.4 mg/dL (0.6-1.3); MAGNESIUM - SERUM 2.2 mg/dL (1.8-2.4); POTASSIUM - SERUM 4.6 mmol/L (3.5-5.1)
[2021-03-03 08:14] LABS: BASOPHILS 0.3 % (0-2); EOSINOPHILS 0 % (0-7); HEMATOCRIT 35.3 % (42.0-54.0); HEMOGLOBIN 11.5 g/dL (13.5-17.5); LYMPHOCYTES 11.7 % (15-50); MCH 30.1 pg (26.0-34.0); MCHC 32.6 g/dL (31.0-37.0); MCV 92.3 fL (80.0-100.0); MEAN PLATELET VOLUME 8.4 fL (7.4-10.4); MONOCYTES 2.2 % (2-11); NEUTROPHILS 85.8 % (40-80); PLATELET COUNT 348 10x3/uL (130-400); RBC 3.82 10x6/uL (4.20-6.10); RDW 15.6 % (11.5-14.5); WBC 21.3 10x3/uL (4.8-10.8)
--- NOTE | 2021-03-03 08:39 | MORECARE ---
CASE MANAGEMENT DISCHARGE SUMMARY PATIENT: JENNIFER LIND UNIT: [id number] ADM DATE: 02/27/21 AGE: 55 : 65 SEX: M [facility] AUTHOR: JAKUB,DOC PHYSICIAN: REFERRING PHYSICIAN: SYMONE SIMMONS MD DATE OF SERVICE: 03/03/21 Case Management Discharge Planning Summary DCP REVIEW SUMMARY ANTICIPATED D/C DATE: EXPECTED LOS : CASE STATUS: DCP Initiated INITIAL REVIEW: 02/27/2021 INITIAL REVIEWER: Michelle Cobb FINAL DISCHARGE DISPOSITION: : FINAL REVIEWER: FINAL REVIEW DATE: DCP [employer] Questions [employer] Answers QUESTION: ANSWER : PATIENT: JENNIFER LIND V ENCOUNTER: [id number] MEDICAL RECORD#: [id number] ADMISSION DATE: 02/27/2021 DISCHARGE DATE: ATTENDING MD: SYMONE CURTIS : AGE: 55 MARITAL STATUS: M DC PLAN ID: [id number] FACILITY: [facility] PRINTED ON: 03/03/21 8:39 CT All edits/amendments must be made on the electronic document DICTATION DATE: 03/03/21838 ARTICULATION OFFICER: DM 03/03/21838 RPT#: [id number] DC DATE: STATUS: ADM IN [facility] [address] [place] [address] END OF REPORT
--- NOTE | 2021-03-03 08:50 | MORECARE ---
CASE MANAGEMENT DISCHARGE SUMMARY PATIENT: JENNIFER LIND UNIT: [id number] ADM DATE: 02/27/21 AGE: 55 : 65 SEX: M [facility] AUTHOR: JAKUB,DOC PHYSICIAN: REFERRING PHYSICIAN: SYMONE SIMMONS MD DATE OF SERVICE: 03/03/21 Case Management Discharge Planning Summary COMMENTS ENTERED DATE: 03/03/21 8:44 CT COMMENT TYPE: Discharge Planning REVIEWER: Michelle Cobb PATIENT PLANS TO DC TO HOME TODAY AFTER NEBULIZER IS DELIVERED TO HIS ROOM. [facility] WILL DELIVER THE NEBULIZER. DCP REVIEW SUMMARY ANTICIPATED D/C DATE: EXPECTED LOS : CASE STATUS: DCP Initiated INITIAL REVIEW: 02/27/2021 INITIAL REVIEWER: Michelle Cobb FINAL DISCHARGE DISPOSITION: : FINAL REVIEWER: FINAL REVIEW DATE: DCP [employer] Questions [employer] Answers QUESTION: ANSWER : PATIENT: JENNIFER LIND V ENCOUNTER: [id number] MEDICAL RECORD#: [id number] ADMISSION DATE: 02/27/2021 DISCHARGE DATE: ATTENDING MD: SYMONE CURTIS : AGE: 55 MARITAL STATUS: M DC PLAN ID: [id number] FACILITY: [facility] PRINTED ON: 03/03/21 8:50 CT All edits/amendments must be made on the electronic document DICTATION DATE: 03/03/21849 HAND TOOL FILER: CATHY 03/03/21 0850 RPT#: [id number] DC DATE: STATUS: ADM IN [facility] [address] [place] [address] END OF REPORT
[2021-03-03 09:26] VITALS: BP 124/71
[2021-03-03] MEDS ORDERED: NICODERM CQ1 EAC3 TRANSDERM (09:38)
[2021-03-03] MEDS ORDERED: IPRAT-ALBUT 0.5-3 ML INH (09:38)
[2021-03-03] MEDS ORDERED: TESSALON PERLE100 MG PO (09:39)
[2021-03-03] MEDS ORDERED: FLORAJEN DIGES1 EACH PO (09:39)
[2021-03-03] MEDS ORDERED: MUCINEX600 MG PO (09:39)
[2021-03-03] MEDS ORDERED: PREDNISONE10 MG PO (09:41)
[2021-03-03] MEDS ORDERED: ZITHROMAX500 MG PO (09:41)
[2021-03-03] MEDS ORDERED: OMNICEF300 MG PO (09:42)
[2021-03-03] MEDS ORDERED: TRELEGY ELLIPT1 EACH INH (09:44)
--- NOTE | 2021-03-03 11:49 | NUR ---
DISCHARGE TEACHING COMPLETE. NO FURTHER QUESTIONS. IV CATH REMOVED, CATH TIP INTACT. FREE FROM SIGNS OF DISTRESS. GATHERING BELONIGINGS. LEFT UNIT VIA WHEELCHAIR TO HOME AT THIS TIME.
--- NOTE | 2021-03-03 12:01 | MORECARE ---
CASE MANAGEMENT DISCHARGE SUMMARY PATIENT: JENNIFER LIND UNIT: [id number] ADM DATE: 02/27/21 AGE: 55 : 65 SEX: M ROOM/BED: [facility] AUTHOR: JAKUB,DOC PHYSICIAN: REFERRING PHYSICIAN: SYMONE SIMMONS MD DATE OF SERVICE: 03/03/21 Case Management Discharge Planning Summary COMMENTS ENTERED DATE: 03/03/21 8:44 CT COMMENT TYPE: Discharge Planning REVIEWER: Michelle Cobb PATIENT PLANS TO DC TO HOME TODAY AFTER NEBULIZER IS DELIVERED TO HIS ROOM. [facility] WILL DELIVER THE NEBULIZER. DCP REVIEW SUMMARY ANTICIPATED D/C DATE: EXPECTED LOS : CASE STATUS: DCP Initiated INITIAL REVIEW: 02/27/2021 INITIAL REVIEWER: Michelle Cobb FINAL DISCHARGE DISPOSITION: : FINAL REVIEWER: FINAL REVIEW DATE: DCP [employer] Questions [employer] Answers QUESTION: ANSWER : PATIENT: JENNIFER LIND V ENCOUNTER: [id number] MEDICAL RECORD#: [id number] ADMISSION DATE: 02/27/2021 DISCHARGE DATE: 03/03/2021 ATTENDING MD: SYMONE CURTIS : AGE: 55 MARITAL STATUS: M DC PLAN ID: [id number] FACILITY: [facility] PRINTED ON: 03/03/21 12:01 CT All edits/amendments must be made on the electronic document DICTATION DATE: 03/03/211200 CUSTOMER ENGINEERING SPECIALIST: CATHY 03/03/21 120 RPT#: [id number] DC DATE:03/03/21 STATUS: DIS IN [facility] [address] [place] [address] END OF REPORT
--- NOTE | 2021-03-03 16:32 | MORECARE ---
CASE MANAGEMENT DISCHARGE SUMMARY PATIENT: JENNIFER LIND UNIT: [id number] ADM DATE: 02/27/21 AGE: 55 : 65 SEX: M [facility] AUTHOR: JAKUB,DOC PHYSICIAN: REFERRING PHYSICIAN: SYMONE SIMMONS MD DATE OF SERVICE: 03/03/21 Case Management Discharge Planning Summary COMMENTS ENTERED DATE: 03/03/21 8:44 CT COMMENT TYPE: Discharge Planning REVIEWER: Michelle Cobb PATIENT PLANS TO DC TO HOME TODAY AFTER NEBULIZER IS DELIVERED TO HIS ROOM. [facility] WILL DELIVER THE NEBULIZER. DCP REVIEW SUMMARY ANTICIPATED D/C DATE: EXPECTED LOS : CASE STATUS: DCP Initiated INITIAL REVIEW: 02/27/2021 INITIAL REVIEWER: Michelle Cobb FINAL DISCHARGE DISPOSITION: : FINAL REVIEWER: FINAL REVIEW DATE: DCP [employer] Questions [employer] Answers QUESTION: ANSWER : PATIENT: JENNIFER LIND V ENCOUNTER: [id number] MEDICAL RECORD#: [id number] ADMISSION DATE: 02/27/2021 DISCHARGE DATE: 03/03/2021 ATTENDING MD: SYMONE CURTIS : AGE: 55 MARITAL STATUS: M DC PLAN ID: [id number] FACILITY: [facility] PRINTED ON: 03/03/21 16:32 CT All edits/amendments must be made on the electronic document DICTATION DATE: 03/03/211631 ORGANIZATIONAL PSYCHOLOGIST: CATHY 03/03/21 163 RPT#: [id number] DC DATE:03/03/21 STATUS: DIS IN [facility] [address] [place] [address] END OF REPORT
== END 2021-03-03 11:50 | disposition home or self-care (01) ==
LOC: D.ER 17:14 → OBSVTIME 18:40 → D.MS 18:40
PROVIDERS: Family Medicine; ADMIT Family Medicine; ATTEND Family Medicine
DX: J44.1 Chronic obstructive pulmonary disease with (acute) exacerbation (principal); R06.02 Shortness of breath; I10 Essential (primary) hypertension; E78.5 Hyperlipidemia, unspecified; K21.9 Gastro-esophageal reflux disease without esophagitis; D72.829 Elevated white blood cell count, unspecified; D64.9 Anemia, unspecified; N17.9 Acute kidney failure, unspecified; F17.200 Nicotine dependence, unspecified, uncomplicated

== ENCOUNTER → 2021-03-18 09:49 | Outpatient (CLI) | payer MEDICAID ==
[2021-03-01 13:13] VITALS: BMI 24.1
[~2021-03-18 09:49] MED LIST changes: +ANORO ELLIPTA1 EACH INH; +FLORAJEN DIGES1 EACH PO; +IPRAT-ALBUT 0.5-3 ML INH; +LISINOPRIL10 MG PO; +MUCINEX600 MG PO; +NICODERM CQ1 EAC3 TRANSDERM; +OMNICEF300 MG PO; +PREDNISONE10 MG PO; +TESSALON PERLE100 MG PO; +TRELEGY ELLIPT1 EACH INH; +ZITHROMAX500 MG PO
== END | disposition home or self-care (01) ==
LOC: D.LAB 09:49
PROVIDERS: ATTEND Internal Medicine Pulmonary Disease
DX: Z11.52 Encounter for screening for COVID-19 (principal)

== ENCOUNTER → 2021-03-23 08:26 | Outpatient (CLI) | payer BC ==
[2021-03-01 13:13] VITALS: BMI 24.1
== END | disposition home or self-care (01) ==
LOC: D.RT 08:26
PROVIDERS: ATTEND Internal Medicine Pulmonary Disease
DX: J44.9 Chronic obstructive pulmonary disease, unspecified (principal); Z20.822 Contact with and (suspected) exposure to COVID-19